=== PATIENT | female | born 1995 | race Caucasian/White ===

== ENCOUNTER 2018-10-27 08:14 | Emergency (ER) | payer BC ==
[2018-10-27 08:43] VITALS: BP 119/74
--- NOTE | 2018-10-27 09:06 | UC ---
Ear Complaint HPI - HPI Summary HPI Summary: The patient is a 23-year-old female that presents here with her right ear feeling plugged. She has frequent problems with cerumen impaction. She has never had any surgeries on her years. She has no fever or chills. She denies any URI symptoms. - History of Current Complaint Chief Complaint: UCEar Stated Complaint: RT EAR PAIN Time Seen by Provider: 10/27/18 08:57 Hx Obtained From: Patient Hx Last Menstrual Period: 10/06/18 Onset/Duration: Sudden Onset, Lasting Hours Severity Initially: Mild Severity Currently: None Pain Intensity: 0 Pain Scale Used: 0-10 Numeric Aggravating Factors: Nothing Alleviating Factors: Nothing Associated Signs/Symptoms: Positive: Hearing Loss - Allergies/Home Medications Allergies/Adverse Reactions: Allergies Allergy/AdvReac Type Severity Reaction Status Date / Time No Known Allergies Allergy Verified 10/27/18 08:43 Home Medications: Home Medications Norgestrel-Ethinyl Estradiol [Cryselle-28] 1 tab PO DAILY 10/27/18 [History Confirmed 10/27/18] PMH/Surg Hx/FS Hx/Imm Hx Previously Healthy: Yes - Surgical History Surgical History: None - Family History Known Family History: Negative: Cardiac Disease, Hypertension, Diabetes - Social History Alcohol Use: None Substance Use Type: None Smoking Status (MU): Never Smoked Tobacco Review of Systems All Other Systems Reviewed And Are Negative: Yes Constitutional: Positive: Negative Skin: Positive: Negative Eyes: Positive: Negative ENT: Positive: Ear Ache - plugged Respiratory: Positive: Negative Cardiovascular: Positive: Negative Gastrointestinal: Positive: Negative Genitourinary: Positive: Negative Motor: Positive: Negative Neurovascular: Positive: Negative Musculoskeletal: Positive: Negative Neurological: Positive: Negative Psychological: Positive: Negative Physical Exam Triage Information Reviewed: Yes Appearance: Well-Appearing, No Pain Distress, Well-Nourished Vital Signs: Initial Vital Signs Temp 98.5 F 10/27/18 08:40 Pulse 53 10/27/18 08:40 Resp 18 10/27/18 08:40 BP 119/74 10/27/18 08:40 Pulse Ox 100 10/27/18 08:40 Vital Signs Reviewed: Yes Eyes: Positive: Conjunctiva Clear ENT: Negative: Hearing grossly normal, Pharyngeal erythema, Nasal congestion, Nasal drainage, TMs normal - unable to visualise either TM due to cerumen, Trismus, Muffled voice, Hoarse voice Ear Complaint Course/Dx - Course Course Of Treatment: after flush both TMs visible and normal - Differential Dx/Diagnosis Provider Diagnosis: Cerumen impaction Discharge - Sign-Out/Discharge Documenting (check all that apply): Patient Departure All imaging exams completed and their final reports reviewed: No Studies - Discharge Plan Condition: Stable Disposition: HOME Patient Education Materials: Cerumen Impaction (ED) Referrals: No Primary Care Phys,NOPCP [Primary Care Provider] - Additional Instructions: call for any questions return for any problems - Billing Disposition and Condition Condition: STABLE Disposition: Home
== END 2018-10-27 09:25 | disposition home or self-care (01) ==
LOC: UCCORT 08:14
DX: H61.23 Impacted cerumen, bilateral (principal)
CPT/HCPCS: 99203; G0463